=== PATIENT | male | born 1945 | race Caucasian/White ===

== ENCOUNTER → 2017-12-23 | Outpatient (CLI) | payer MEDICARE ==
--- NOTE | 2017-12-23 12:58 | Diagnostic Imaging Report ---
Exam: Right shoulder 2 views History: Right shoulder pain Comparison: None. Findings: No acute, displaced fracture or dislocation. There is moderate narrowing of the acromioclavicular and glenohumeral joints, with mild undersurface acromioclavicular osteophytosis. Large osteophytes along the humeral head and inferior lip of the glenoid. Soft tissues are unremarkable. Partially visualized right upper hemithorax is well aerated. Impression: Moderate acromioclavicular and glenohumeral degenerative joint disease. Signed by: Dr. Kenrick Curiel M.D. on 12/23/2017 12:55 PM
== END ==
LOC: RAD 12:28
DX: M25.511 Pain in right shoulder (principal)